=== PATIENT | female | born 1975 | race Caucasian/White ===

== ENCOUNTER → 2018-06-21 13:23 | Outpatient (CLI) | payer BC, SELFPAY ==
--- NOTE | 2018-06-21 13:26 | RAD_ITS ---
STUDY: X-RAY - RIGHT HAND REASON FOR EXAM: Female, 42 years old. Pain at base of second-fourth fingers, difficulty grasping TECHNIQUE: 3 view(s) of the hand. COMPARISON: None. FINDINGS: Normal radiocarpal articulation. Normal distal radioulnar joint. Normal visualized carpal bones. Normal carpal articulations Normal carpometacarpal articulation of the thumb. Normal second through fifth carpometacarpal joints. Benign cystic 5 mm degenerative change with sclerotic border noted in the lateral head of the third metacarpal. Otherwise, normal metacarpi. Normal metacarpophalangeal joint of the thumb. Normal interphalangeal joint of the thumb. Normal proximal and distal phalanges of the thumb. Normal metacarpophalangeal joints of the second through fifth fingers. Normal proximal and distal interphalangeal joints of the second through fifth fingers. Normal phalanges of the second through fifth fingers. The soft tissue structures are unremarkable. There is no demonstrated osseous destructive lesion or acute fracture. RAD/Hand Min 3 Views IMPRESSION: 5 mm benign cystic degenerative change in the head of the third metacarpal, otherwise normal x-ray examination of the right hand. Electronically Signed: René Perez MD at 15:00 EST , Service support ,
== END ==
PROVIDERS: Family Provider Family Medicine; PCP Family Medicine; Referring Provider Physician Assistant; Visit Provider Physician Assistant
DX: M79.641 Pain in right hand (principal)
CPT/HCPCS: 73130

== ENCOUNTER → 2018-08-12 12:03 | Outpatient (CLI) | payer OTHER, SELFPAY ==
[2018-08-06 10:00] VITALS: BMI 36.0
[2018-08-12 13:26] LABS: Hemoglobin A1c 5.3 % (4.2-6.3)
[2018-08-12 13:28] LABS: Anion Gap 9 (5-15); BUN 10 mg/dL (7-18); BUN/Creat Ratio 14.9 RATIO (10-20); Calcium,Total 8.6 mg/dL (8.5-10.1); Chloride 105 mmol/L (98-107); Creatinine, Serum 0.67 mg/dL (0.55-1.02); EST Glomerular Filtration Rate 102 mL/min (>60); Est Glom Filt Rate - Afr Amer 124 mL/min (>60); Glucose 83 mg/dL (74-106); Potassium 3.9 mmol/L (3.5-5.1); Sodium Level 141 mmol/L (136-145); Thyroid Stim Hormone (TSH) 2.93 uIU/mL (0.358-3.74)
== END ==
PROVIDERS: Family Provider Student in an Organized Health Care Education/Training Program; PCP Student in an Organized Health Care Education/Training Program; Referring Provider Internal Medicine; Visit Provider Internal Medicine
DX: Z79.899 Other long term (current) drug therapy (principal); R53.81 Other malaise
CPT/HCPCS: 36415; 80048; 83036; 84443

== ENCOUNTER 2018-08-12 13:00 | Outpatient (RCR) | payer BC, OTHER, SELFPAY ==
--- NOTE | 2018-06-25 14:50 | HP.OTEVAL_ITS ---
Patient's Visit Information MISBAH HERNÁNDEZ is a 42 year old F, referred to Occupational Therapy by REESE Stephen, with a diagnosis of R hand pain 3rd and 4th MCP sprain. Date of Evaluation: 06/25/18 Occupational Therapist: Britney Bruce, ROBINR/Mary, CHT - Subjective Subjective: pt. arrives and states that she was playing pickle ball, fell and landed with hand in extended position causing a sprain in the 3rd and 4th MCP's. This occured on 04/14/18. pt. reports that swelling has improved along with ROM within the past couple months. pt. is concerned because she is still having pain during certain functional tasks and within her work environment. - Pain R hand 1 Pain Intensity Range: 0, 1, 2, 3, 4, 5 - Objective Objective/Observation: swollen on the dorsal aspect of the R hand - ROM ROM Comments: 4th. MP 0/80 R, 0/90 L. PIP 0/95 R, 0/86 L. DIP 0/70 R, 0/86 L. 3rd. MP 0/80 R, 0/94 L. PIP 0/87 R, 0/95 L. DIP 0/75 R, 0/95 L. pt. reports that wrist was not impacted by the fall. 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 by completing strengthening exercises and stretches in order to complete BADL?s and IADL?s. Patient will improve tripod grasp by 5 lbs. by completing strengthening and stretching exercises in order to complete BADL?s and IADL?s. Goal:: Patient will increase ROM in all joints of the 3rd and 4th digits on the R hand by 10 degrees by completing strengthening and stretching exercises in order to complete BADL?s and IADL?s. Goal:: Patient will have decreased swelling and report overall decrease in pain of <2 in order to complete BADL?s and IADL?s. patient will tolerate kinesiotaping methods to decrease swelling in the MCP's of the R hand for increased ability to complete BADL's and IADL's. Goal:: patient will report completion of and demo understanding of HEP for increased I with BADL's and IADL's. - Rehabilitation General Assessment: Pt. arrives with R hand pain 3rd and 4th MCP sprain after falling on 04/14/18. pt. presents today with decrease in strength, ROM, increased pain and swelling, and decreased ability to complete BADL's and IADL's. pt. will benefit from OT services 1-2x/wk for 2-3 wks. Today OT educated pt. about HEP, which included tendon glides and finger stretches. OT educated pt about kinesiotaping methods to decrease swelling in the 3rd and 4th MCP's. OT pr ovided US to break up scar tissue, decrease pain and promote heaing in the R hand. Rehabilitation Potential: Good - Anticipated Interventions Anticipated Interventions: A/AAROM/PROM, Strengthening, Triggerpoint Release, Modalities, Ergonomic Education, ADL Training, Home Program - Visit Plan Frequency: 1-2x /Week Duration: 2-3 wks. TEXT: Thank you for the opportunity to evaluate your patient. For Medicare and Medicare HMO plans, please review the plan of care and approve it. It will need to be FAXED BACK to us at [phone] for Medicare purposes. Please let me know if there are questions or concerns regarding this plan of care. Physician Signature: Date:
--- NOTE | 2018-08-29 08:07 | HP.OT.NRP ---
HP - Discharge Summary - Patient Information MISBAH HERNÁNDEZ was seen in my office for initial evaluation on 06/25/18. The following Plan of Care was established for this patient: Initial Frequency: 1-2x /Week Initial Duration: 2-3 wks. Plan: cont POC - Anticipated Interventions Anticipated Interventions: A/AAROM/PROM, Strengthening, Triggerpoint Release, Modalities, Ergonomic Education, ADL Training, Home Program This patient was last seen in our office 08/12/18. Pertinent comments regarding their Occupational therapy will appear below: pt was seen for 4 visits in OT. Therapy challenged pts ROM, strength and functional use of her right hand. PT called in to let therapist know she is doing well with job duties and is ready for d/c. pt did meet goals in OT. Pt D/C at this time. At this point I will be discontinuing this patient from occupational therapy. I would be happy to see this patient again in the future if found appropriate by the physician. Thank you! Britney Bruce, OTR/L, CHT
== END 2018-08-12 19:00 | disposition home or self-care (01) ==
LOC: OT 13:00
PROVIDERS: Family Provider Student in an Organized Health Care Education/Training Program; PCP Student in an Organized Health Care Education/Training Program; Referring Provider Physician Assistant; Visit Provider Physician Assistant
DX: M79.641 Pain in right hand (principal); S63.652D Sprain of metacarpophalangeal joint of right middle finger, subsequent encounter; S63.654D Sprain of metacarpophalangeal joint of right ring finger, subsequent encounter
CPT/HCPCS: 97035; 97110; 97140; 97166; 97530

== ENCOUNTER → 2018-08-23 07:27 | Outpatient (CLI) | payer OTHER, SELFPAY ==
[2018-08-06 10:00] VITALS: BMI 36.0
[2018-08-12 14:38] VITALS: BMI 36.0
[2018-08-23 07:47] LABS: Hematocrit 38.1 % (37-47); Hemoglobin 12.5 g/dl (12.0-15.0); Mean Corp Hgb Conc 32.8 g/gl (32-36); Mean Corpuscular Hgb 29.6 pg (27.0-32.0); Mean Corpuscular Volume 90.1 fL (81-99); Mean Platelet Vol. 9.5 fl (6.2-12.0); Platelet Count 346 K/mm3 (150-450); RBC Distribution Width CV 13.5 % (11.6-14.6); Red Blood Count 4.23 M/mm3 (4.2-5.4); White Blood Count 6.4 K/mm3 (4.4-11.0)
[2018-08-23 07:54] LABS: Scan Indicated on CBC? Y/N NO
--- NOTE | 2018-08-23 07:59 | BI_ITS ---
MAMMOGRAPHY - BILATERAL SCREENING REASON FOR EXAM: Female, 42 years old. Routine annual screening examination. PERTINENT HISTORY: Non-contributory. TECHNIQUE: Digital bilateral breast nikita (3D mammographic acquisition) in the CC and MLO projections. 2-D mediolateral oblique (MLO) and craniocaudad (CC) views of both breasts were obtained. CAD: Full Field Digital Mammography with Computer Added Detection was performed. COMPARISON: Comparison is made with prior outside examination dated November 13, 2016. FINDINGS: Breast Composition: The breasts are heterogeneously dense, which may obscure small masses. There are no dominant masses or suspicious calcifications. Stable benign-appearing bilateral axillary lymph nodes. No other significant abnormalities are identified. There has been no significant change since the prior study. BI/SCREENING MAMM (CAD), BILAT IMPRESSION: Stable bilateral screening mammogram. Yearly follow-up mammogram recommended. (A) ASSESSMENT CATEGORY: BIRADS Category 2: Benign. A letter regarding these results will be sent to the patient by the facility within 30 days. Approximately 10% of breast cancers are not detected by mammography. A normal mammogram should not delay biopsy of a clinically suspicious abnormality. [id number] Electronically Signed: Americo Dsouza MD at 8:55 EST , Service support ,
[2018-08-23 08:10] LABS: AST(SGOT) 15 U/L (15-37); Alanine Aminotransfer ALT/SGPT 26 U/L (13-56); Albumin, Serum 3.7 g/dL (3.2-5.0); Alkaline Phosphatase 72 U/L (45-117); Bilirubin, Direct 0.11 mg/dL (0.00-0.30); Cholesterol 156 mg/dL (200); Globulin 3.7 g/dL (2.2-4.2); High Density Lipoprotein 48 mg/dL; Protein, Total 7.4 g/dL (6.4-8.2); Triglycerides 128 mg/dL; Very Low Density Lipoprotein 26 mg/dL (5-40)
[2018-08-23 10:11] LABS: Vitamin B12 515 pg/mL (211-911); Vitamin D,25 Hydroxy 21.1 ng/mL (29.95-100.01)
== END ==
PROVIDERS: Family Provider Student in an Organized Health Care Education/Training Program; PCP Student in an Organized Health Care Education/Training Program; Referring Provider Obstetrics & Gynecology; Visit Provider Obstetrics & Gynecology
DX: Z00.00 Encounter for general adult medical examination without abnormal findings (principal); Z12.31 Encounter for screening mammogram for malignant neoplasm of breast
CPT/HCPCS: 36415; 77063; 77067; 80061; 80076; 82306; 82607; 85027

== ENCOUNTER → 2019-02-19 | Outpatient (CLI) | payer OTHER, SELFPAY ==
[2018-08-12 14:38] VITALS: BMI 36.0
--- NOTE | 2019-02-19 14:10 | RAD_ITS ---
STUDY: X-RAY - LEFT FOOT CLINICAL: Female, 43 years old. Foot pain. Heel pain. TECHNIQUE: 3 view(s) of the foot. COMPARISON: None. FINDINGS: Moderate plantar spur. Otherwise normal Talus, calcaneus, and tarsal bones. Normal visualized subtalar, talonavicular, calcaneocuboid, tarsal and tarsometatarsal articulations. Normal metatarsi. Normal metatarsophalangeal joint of the great toe. Normal tibial and fibular sesamoid bones. Normal interphalangeal joint of the great toe. Normal phalanges of the great toe. Normal second through fifth metatarsophalangeal joints. Normal interphalangeal joints and phalanges of the lesser toes. The soft tissue structures are unremarkable. There is no demonstrated fracture. RAD/Foot min 3 Views IMPRESSION: Moderate plantar spur, otherwise normal. Electronically Signed: Munir Metgzer MD at 17:10 EDT , Service support ,
== END | disposition home or self-care (01) ==
LOC: RAD 14:04
PROVIDERS: Family Provider Student in an Organized Health Care Education/Training Program; PCP Student in an Organized Health Care Education/Training Program; Referring Provider Podiatrist Foot & Ankle Surgery; Visit Provider Podiatrist Foot & Ankle Surgery
DX: M79.672 Pain in left foot (principal)
CPT/HCPCS: 73630

== ENCOUNTER 2019-07-02 07:00 | Outpatient (RCR) | payer OTHER, SELFPAY ==
[2018-08-12 14:38] VITALS: BMI 36.0
--- NOTE | 2018-10-19 14:02 | MASS.EVAL ---
Massage Therapy Evaluation: INITIAL EVALUATION: DATE: 10/11/18 PT NAME: MISBAH HERNÁNDEZ : [birth year] V#: [id number] REFERRING PHYS: DR. 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 SHE WAS REFERRED TO [facility] FOR A MASSOTHERAPY EVALUATION BY DR. SMITH WITH THE DIAGNOSIS OF ARTHRITIS OF THE SPINE/TENSION HEADACHES. SHE PRESENTS TODAY WITH THE SYMPTOMS OF MID-BACK PAIN, AND HEADACHES. SHE REPORTS HER PAIN IS A 5/10 AT WORST AND A 2/10 AT REST. SHE WAS DIAGNOSED WITH ARTHRITIS OF THE SPINE 1.5 YEARS AGO. HER TENSION AND HEADACHES HAVE INCREASED IN THE PAST YEAR. MISBAH RATES HER HEALTH IN GOOD CONDITION WITH NO LIMITATIONS IN HER DAILY ACTIVITIES. SHE IS CURRENTLY TAKING FLEXXOR, AND VIT D. OBJECTIVE: THE FIRST TREATMENT CONSISTED OF A MODERATE-DEEP TISSUE UPPER BODY MASSAGE. I FOCUSED ON THE TEMPORALIS, SUBOCCIPITALS, LEVATOR, UPPER TRAPEZIUM, PARASPINALS, RHOMBOIDS, QL'S, AND GLUTEUS MEDIUS AND MINIMUS. MYOFASCIAL RELEASE AND TRIGGER POINT THERAPY WERE PERFORMED. ASSESSMENT: MUSCLE TENSION WAS VERY TIGHT WITH NO NATURAL MYOFASCIAL MOVEMENT. THE LEFT SIDE OF SCAPULAR REGION AND INTO LEFT HIP SEEMED ALOT TIGHTER THAN THE RIGHT SIDE. THE MOST TENDERNESS PLACES WERE THE SUBOCCIPITALS AND SACRAL REGION INTO GLUTEUS. THE PATIENT HAS NOT HAD A MASSAGE FOR MANY YEARS BUT RELAXED WELL WITH A MODERATE RELEASE OVERALL. I FEEL MISBAH IS A GREAT CANDIDATE FOR MASSOTHERAPY AT THIS TIME. PLAN: THE PLAN OF CARE WAS REVIEWED WITH THE PATIENT. THE PATIENT IS TO BE SEEN IN TWO WEEKS THEN ON A REGULAR MONTHLY VISIT FOR A TOTAL OF 10 VISITS FOR ONE HOUR SESSIONS OF MASSOTHERAPY.
--- NOTE | 2018-10-19 14:11 | MASS.EVAL_ITS ---
Massage Therapy Evaluation: INITIAL EVALUATION: DATE: 10/11/18 PT NAME: MISBAH HERNÁNDEZ : [birth year] V#: [id number] REFERRING PHYS: DR. 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 SHE WAS REFERRED TO [facility] FOR A MASSOTHERAPY EVALUATION BY DR. SMITH WITH THE DIAGNOSIS OF ARTHRITIS OF THE SPINE/TENSION HEADACHES. SHE PRESENTS TODAY WITH THE SYMPTOMS OF MID-BACK PAIN, AND HEADACHES. SHE REPORTS HER PAIN IS A 5/10 AT WORST AND A 2/10 AT REST. SHE WAS DIAGNOSED WITH ARTHRITIS OF THE SPINE 1.5 YEARS AGO. HER TENSION AND HEADACHES HAVE INCREASED IN THE PAST YEAR. MISBAH RATES HER HEALTH IN GOOD CONDITION WITH NO LIMITATIONS IN HER DAILY ACTIVITIES. SHE IS CURRENTLY TAKING FLEXXOR, AND VIT D. OBJECTIVE: THE FIRST TREATMENT CONSISTED OF A MODERATE-DEEP TISSUE UPPER BODY MASSAGE. I FOCUSED ON THE TEMPORALIS, SUBOCCIPITALS, LEVATOR, UPPER TRAPEZIUM, PARASPINALS, RHOMBOIDS, QL'S, AND GLUTEUS MEDIUS AND MINIMUS. MYOFASCIAL RELEASE AND TRIGGER POINT THERAPY WERE PERFORMED. ASSESSMENT: MUSCLE TENSION WAS VERY TIGHT WITH NO NATURAL MYOFASCIAL MOVEMENT. THE LEFT SIDE OF SCAPULAR REGION AND INTO LEFT HIP SEEMED ALOT TIGHTER THAN THE RIGHT SIDE. THE MOST TENDERNESS PLACES WERE THE SUBOCCIPITALS AND SACRAL REGION INTO GLUTEUS. THE PATIENT HAS NOT HAD A MASSAGE FOR MANY YEARS BUT RELAXED WELL WITH A MODERATE RELEASE OVERALL. I FEEL MISBAH IS A GREAT CANDIDATE FOR MASSOTHERAPY AT THIS TIME. PLAN: THE PLAN OF CARE WAS REVIEWED WITH THE PATIENT. THE PATIENT IS TO BE SEEN IN TWO WEEKS THEN ON A REGULAR MONTHLY VISIT FOR A TOTAL OF 10 VISITS FOR ONE HOUR SESSIONS OF MASSOTHERAPY.
--- NOTE | 2019-07-03 11:04 | DS.PCM_ITS ---
Massage Therapy Discharge Summary: DATE: 07/03/2019 V#: [id number] PT NAME: MISBAH CUEVA : 1975 REF PHYS: DR. SMITH THE PATIENT WAS SEEN FOR MASSOTHERAPY EVALUATION ON 10/11/2018 WITH A DIAGNOSIS ARTHRITIC SPINE. THE PATIENT WAS TREATED WITH 8 SESSIONS OF MASSAGE CONSISTING OF UPPER BODY DEEP TISSUE MASSAGE, COMBINED WITH TRIGGER POINT THERAPY AND MUSCLE STRIPPING. HER GOALS FOR TREATMENT WERE MET SHE REPORTED TO BE IN LESS PAIN AND LESS MIGRAINES. AT THIS TIME I AM DISCHARGING THE PATIENT FORM OUR CARE AT THE [facility] FOR 2019.
== END 2019-07-02 19:00 | disposition home or self-care (01) ==
LOC: MASS 07:00
PROVIDERS: Family Provider Student in an Organized Health Care Education/Training Program; PCP Student in an Organized Health Care Education/Training Program; Referring Provider Student in an Organized Health Care Education/Training Program; Visit Provider Student in an Organized Health Care Education/Training Program
DX: G44.209 Tension-type headache, unspecified, not intractable (principal)
CPT/HCPCS: 97124

== ENCOUNTER → 2019-07-03 09:21 | Outpatient (CLI) | payer OTHER, SELFPAY ==
[2018-08-12 14:38] VITALS: BMI 36.0
[2019-07-03 10:03] LABS: Absolute Lymphocyte Count 1.97 X10^3/uL (0.83-4.51); Absolute Neutrophil Count 4.9 X10^3/uL (2.0-7.7); Basophil# 0.07 X10^3/uL; Basophil% 0.9 % (0-1); Eosinophil# 0.13 X10^3/uL; Eosinophils% 1.7 % (0-5); Hematocrit 32.9 % (37-47); Hemoglobin 10.3 g/dL (12.0-15.0); Lymphocyte # 1.97 X10^3/ul (4.0); Lymphocyte % 25.9 % (19-41); Mean Corp Hgb Conc 31.3 g/dL (32-36); Mean Corpuscular Hgb 26.2 pg (27.0-32.0); Mean Corpuscular Volume 83.7 fL (81-99); Mean Platelet Vol. 9.6 fl (6.2-12.0); Monocyte# 0.55 X10^3/uL; Monocyte% 7.2 % (0-10); NRBC Flagged by Analyzer 0 % (0-5); Neutrophil # 4.86 X10^3/uL (2.7-7.7); Neutrophil % 63.9 % (47-70); Platelet Count 388 K/mm3 (150-450); RBC Distribution Width CV 15.2 % (11.6-14.6); RBC Distribution Width SD 46.2 fl (35.1-43.9); Red Blood Count 3.93 M/mm3 (4.2-5.4); White Blood Count 7.6 K/mm3 (4.4-11.0)
[2019-07-03 10:47] LABS: Vitamin D,25 Hydroxy 40.2 ng/mL (29.95-100.01)
[2019-07-03 11:32] LABS: AST(SGOT) 11 U/L (15-37); Alanine Aminotransfer ALT/SGPT 19 U/L (13-56); Albumin, Serum 3.8 g/dL (3.2-5.0); Alkaline Phosphatase 83 U/L (45-117); Anion Gap 8 (5-15); BUN 12 mg/dL (7-18); BUN/Creat Ratio 15.3 RATIO (10-20); Calcium,Total 8.4 mg/dL (8.5-10.1); Chloride 106 mmol/L (98-107); Creatinine, Serum 0.78 mg/dL (0.55-1.02); EST Glomerular Filtration Rate 85 mL/min (>60); Est Glom Filt Rate - Afr Amer 103 mL/min (>60); Globulin 3.7 g/dL (2.2-4.2); Glucose 86 mg/dL (74-106); Potassium 3.8 mmol/L (3.5-5.1); Protein, Total 7.5 g/dL (6.4-8.2); Sodium Level 139 mmol/L (136-145); T4 Free Direct 1.02 ng/dL (0.76-1.46); Thyroid Stim Hormone (TSH) 2.31 uIU/mL (0.358-3.74)
== END ==
PROVIDERS: Family Provider Student in an Organized Health Care Education/Training Program; PCP Student in an Organized Health Care Education/Training Program; Referring Provider Registered Nurse; Visit Provider Registered Nurse
DX: E55.9 Vitamin D deficiency, unspecified (principal); R53.83 Other fatigue
CPT/HCPCS: 36415; 80053; 82306; 84439; 84443; 85025

== ENCOUNTER → 2019-07-07 14:07 | Outpatient (CLI) | payer OTHER, SELFPAY ==
[2018-08-12 14:38] VITALS: BMI 36.0
[2019-07-07 15:06] LABS: Absolute Lymphocyte Count 2.12 X10^3/uL (0.83-4.51); Absolute Neutrophil Count 5.1 X10^3/uL (2.0-7.7); Basophil% 1.2 % (0-1); Eosinophil# 0.17 X10^3/uL; Eosinophils% 2.1 % (0-5); Hematocrit 31.4 % (37-47); Hemoglobin 9.9 g/dL (12.0-15.0); Lymphocyte # 2.12 X10^3/ul (4.0); Lymphocyte % 25.9 % (19-41); Mean Corp Hgb Conc 31.5 g/dL (32-36); Mean Corpuscular Hgb 25.8 pg (27.0-32.0); Mean Platelet Vol. 9.8 fl (6.2-12.0); Monocyte# 0.66 X10^3/uL; Monocyte% 8.1 % (0-10); NRBC Flagged by Analyzer 0 % (0-5); Neutrophil % 62.2 % (47-70); Platelet Count 382 K/mm3 (150-450); RBC Distribution Width CV 15.6 % (11.6-14.6); RBC Distribution Width SD 46.3 fl (35.1-43.9); Red Blood Count 3.83 M/mm3 (4.2-5.4); White Blood Count 8.2 K/mm3 (4.4-11.0)
[2019-07-07 15:37] LABS: Vitamin B12 532 pg/mL (211-911)
[2019-07-07 16:11] LABS: AST(SGOT) 13 U/L (15-37); Alanine Aminotransfer ALT/SGPT 20 U/L (13-56); Albumin, Serum 3.6 g/dL (3.2-5.0); Alkaline Phosphatase 83 U/L (45-117); Anion Gap 5 (5-15); BUN 18 mg/dL (7-18); Calcium,Total 8.3 mg/dL (8.5-10.1); Chloride 105 mmol/L (98-107); Creatinine, Serum 1.06 mg/dL (0.55-1.02); EST Glomerular Filtration Rate 60 mL/min (>60); Est Glom Filt Rate - Afr Amer 73 mL/min (>60); Ferritin 3 ng/mL (8-252); Globulin 3.7 g/dL (2.2-4.2); Glucose 79 mg/dL (74-106); Iron 27 ug/dL (50-170); Iron Binding Capacity,Total 487 ug/dL (250-450); PERCENT IRON SATURATION 5.5 % (15.0-55.0); Potassium 3.9 mmol/L (3.5-5.1); Protein, Total 7.3 g/dL (6.4-8.2); Sodium Level 137 mmol/L (136-145)
== END ==
PROVIDERS: Family Provider Student in an Organized Health Care Education/Training Program; PCP Student in an Organized Health Care Education/Training Program; Referring Provider Registered Nurse; Visit Provider Registered Nurse
DX: D64.9 Anemia, unspecified (principal)
CPT/HCPCS: 36415; 80053; 82607; 82728; 82746; 83540; 83550; 85025

== ENCOUNTER → 2019-07-11 10:17 | Outpatient (CLI) | payer OTHER, SELFPAY ==
[2018-08-12 14:38] VITALS: BMI 36.0
== END ==
PROVIDERS: Family Provider Student in an Organized Health Care Education/Training Program; PCP Student in an Organized Health Care Education/Training Program; Referring Provider Registered Nurse; Visit Provider Registered Nurse
DX: D64.9 Anemia, unspecified (principal)
CPT/HCPCS: 82274

== ENCOUNTER 2019-08-12 12:00 | Outpatient (RCR) | payer OTHER, SELFPAY ==
[2018-08-12 14:38] VITALS: BMI 36.0
--- NOTE | 2019-07-03 11:14 | HP.PTEVAL_ITS ---
Patient's Visit Information MISBAH HERNÁNDEZ is a 43 year old F referred to Physical Therapy by Elijah Mcgovern DPM with a diagnosis of L plantarfasciitis. Date of Evaluation: 07/03/19 Physical Therapist: Dalton Sena DPT, OCS, CSCS - Visit Plan Frequency: 3x /Week Duration: 4-6 Weeks Plan: 3x/week for 3-6 weeks for. 1. rollotu gastroc adn PF L, stretch gastroc adn PF. 2. Monitor activitiy modification. 3. strengthen ankle. 4. ionto with dex if ordered(US nonthermal if not) to L heel. Orthoitcs DPM ordered today and billed for. - Subjective Findings: L foot plantarfasciitis since September. Improved but has one spot on heel that hurts sharply, constant noticeable but pretty intense when on it alot. 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 7/10. Dull ache to 7/10. First few steps very painful. Morning pain had been really bad but better now. Doctor did injection adn has inserts and night splints, stretching icing ibuprofen and KT tape. Overall 60% batter. Activites at home are normal but painful on feet alot. Sleeping OK, nightsplint comes of in her sleep. - Pain L heel Pain Intensity (Out of 10): 1 Pain Intensity Range: 1, 7 - Objective Walks safe and I avoiding some heel strike adn push off L. Trasnfers and steps I. AROM L DF 0 adn R 4 degrees with knee straight. Tender to palpation medial L calcaneal plantar surface. Metatarsals adn big toe move well. Ankle strength 5/5 and other AROM WFL. reflexes 2/3 patella adn achilles. Sensation WNL to gross light touch in LE. - Goals Goal 1:: Pain intermittent and 2/10 at worst Goal Time Frame: 4-6 Weeks Goal 2:: Walk at work without increased pain Goal Time Frame: 4-6 Weeks Goal 3:: I approp mgmt of condition with ex/.stretches. Goal Time Frame: 4-6 Weeks Goal 4:: fit for and I in use of orthotics. Goal Time Frame: 4-6 Weeks Goal 5:: Resume walking for fitness without increased pain. Goal Time Frame: 4-6 Weeks - Rehabilitation Potential Physical Therapy Diagnosis: L plantar fasciitis Rehabilitation Potential: Fair - Anticipated Interventions Patient/Client Instruction: Educate patient on: Condition, Plan of Care For the Purpose of:: To decrease pain, To improve muscle performance and motor function, To improve ability of physical actions for home/community/work/leisure Therapeutic Exercise to Include: Strength training, Flexibilty training, Passive ROM For the Purpose of:: To decrease pain, To improve muscle performance and motor function, To improve ability of physical actions for home/community/work/leisure Manual Therapy Techniques to Include: Passive ROM, Soft tissue mobilization For the Purpose of:: To decrease pain, To increase ROM Orthotics: Shoe insert For the Purpose of:: To decrease pain Iontophoresis (with Dexamethozone, with Acetic acid): Yes For the Purpose of:: To decrease pain, To decrease swelling/inflammation Thank you for the opportunity to evaluate your patient. For Medicare and Medicare HMO plans, please review the plan of care and approve it. It will need to be FAXED BACK to us at [phone] for Medicare purposes. For Medicare only, by signing this I certify the plan of care. Please let me know if there are questions or concerns regarding this plan of care. Physician Signature: Date:
--- NOTE | 2019-08-04 08:39 | HP.PTREVAL ---
Elijah Mcgovern DPM, It has been my pleasure to treat MISBAH HERNÁNDEZ over the last 8 visits for L plantarfasciitis. Please see the progress note below for an update on the physical therapy plan of care! Subjective: Feels like it was getting a lot better but flared up last week for no reason. Pain over weekend, 2/10 pain much of time. Wearing orthoitcs in work shoes. Not walking for fitness yet. Objective/Function: 5 degree active DF knee straight and better with knee bent on L today. Improving slowly overall and appropriate to continue 2 more visits before f/u with doctor. Plan Plan: 2 visits of manual and ionto before she f/u with doctor. Willc all after f/u with doctor to extend POC or d/c as needed. Goals Goal 1:: Pain intermittent and 2/10 at worst Goal Time Frame: 4-6 Weeks Goal Progress: Goal Met Goal 2:: Walk at work without increased pain Goal Time Frame: 4-6 Weeks Goal Progress: Progressing Goal 3:: I approp mgmt of condition with ex/.stretches. Goal Time Frame: 4-6 Weeks Goal 4:: fit for and I in use of orthotics. Goal Time Frame: 4-6 Weeks Goal Progress: Goal Met Goal 5:: Resume walking for fitness without increased pain. Goal Time Frame: 4-6 Weeks Goal Progress: Progressing Anticipated Interventions Patient/Client Instruction: Educate patient on: Condition, Plan of Care For the Purpose of:: To decrease pain, To improve muscle performance and motor function, To improve ability of physical actions for home/community/work/leisure Therapeutic Exercise to Include: Strength training, Flexibilty training, Passive ROM For the Purpose of:: To decrease pain, To improve muscle performance and motor function, To improve ability of physical actions for home/community/work/leisure Manual Therapy Techniques to Include: Passive ROM, Soft tissue mobilization For the Purpose of:: To decrease pain, To increase ROM Orthotics: Shoe insert For the Purpose of:: To decrease pain Iontophoresis (with Dexamethozone, with Acetic acid): Yes For the Purpose of:: To decrease pain, To decrease swelling/inflammation Please do not hesitate to contact me at [phone] by phone or if you have questions or concerns regarding this new plan of care! Sincerely, Dalton Sena, DPT, OCS, CSCS
--- NOTE | 2019-08-12 12:18 | HP.PTDCSUM_ITS ---
HP - PT D/C Summary It has been my pleasure to treat MISBAH HERNÁNDEZ under orders from Elijah Mcgovern DPM, for the diagnosis of L plantarfasciitis for a total of 10 visit(s). Discharge Date: 08/12/19 Please see the following information for a summary of their discharge status. - Subjective Subjective: Overall about 70% better. Was 6/10 adn now 3/10 if grocery shopping or working. Can manage it with rest but not always possible. Sleep is OK. Morning is not horrible. May be facing a walking boot from doctor. Orthoitcs help but not being on feet all day. - Pain L heel Pain Intensity (Out of 10): 3 - Overall Improvement % Improvement: 70 - Objective Objective/Function: Has good ROM and flexibility in L foot and ankle...moving well but element winding machine tender to palpation moderately in plantar calcaneus casuing limping at times and effeccting her ability to do fun things with her family and cannot work without incrreased pain regularly. - Goals Goal 1:: Pain intermittent and 2/10 at worst Goal Progress: not anymore Goal 2:: Walk at work without increased pain Goal Progress: Not Progressing Goal 3:: I approp mgmt of condition with ex/.stretches. Goal Progress: Goal Met Goal 4:: fit for and I in use of orthotics. Goal Progress: Goal Met Goal 5:: Resume walking for fitness without increased pain. Goal Progress: Progressing - Plan Plan: Recommend return to doctor for next step(boot?). Pt to call after doctor visit for more visits or d/c depending on meeting with doctor. - D/C Information Discharge Comments: Pt doing well but has plateaud at about 70% better. Still unable to work without increased pain and limping or hike with family. Wishes to pursue next step with doctor If there are questions or concerns regarding this patient's physical therapy, please feel free to call me at [phone]. Thank you for the referral of this patient. Sincerely, Dalton Sena, DPT, OCS, CSCS
== END 2019-08-12 19:00 | disposition home or self-care (01) ==
LOC: PT 12:00
PROVIDERS: Family Provider Student in an Organized Health Care Education/Training Program; PCP Student in an Organized Health Care Education/Training Program; Referring Provider Podiatrist Foot & Ankle Surgery; Visit Provider Podiatrist Foot & Ankle Surgery
DX: M72.2 Plantar fascial fibromatosis (principal)
CPT/HCPCS: 97033; 97035; 97110; 97140; 97162; 97530; 97760; 97763

== ENCOUNTER → 2019-08-14 08:20 | Outpatient (CLI) | payer OTHER, SELFPAY ==
[2018-08-12 14:38] VITALS: BMI 36.0
[2019-08-07 14:51] VITALS: BMI 36.0
[2019-08-14 10:17] LABS: Absolute Lymphocyte Count 1.62 X10^3/uL (0.83-4.51); Absolute Neutrophil Count 5.1 X10^3/uL (2.0-7.7); Basophil% 1.3 % (0-1); Eosinophils% 2.7 % (0-5); Hematocrit 38.4 % (37-47); Hemoglobin 12.1 g/dL (12.0-15.0); Lymphocyte # 1.62 X10^3/ul (4.0); Lymphocyte % 21.7 % (19-41); Mean Corp Hgb Conc 31.5 g/dL (32-36); Mean Corpuscular Hgb 27.1 pg (27.0-32.0); Mean Corpuscular Volume 86.1 fL (81-99); Mean Platelet Vol. 10.1 fl (6.2-12.0); Monocyte# 0.48 X10^3/uL; Monocyte% 6.4 % (0-10); NRBC Flagged by Analyzer 0 % (0-5); Neutrophil # 5.06 X10^3/uL (2.7-7.7); Neutrophil % 67.6 % (47-70); Platelet Count 376 K/mm3 (150-450); RBC Distribution Width CV 17.9 % (11.6-14.6); RBC Distribution Width SD 57.1 fl (35.1-43.9); Red Blood Count 4.46 M/mm3 (4.2-5.4); White Blood Count 7.5 K/mm3 (4.4-11.0)
[2019-08-14 10:37] LABS: Ferritin 15 ng/mL (8-252); Iron 61 ug/dL (50-170); Iron Binding Capacity,Total 428 ug/dL (250-450); PERCENT IRON SATURATION 14.3 % (15.0-55.0)
== END ==
PROVIDERS: Family Provider Student in an Organized Health Care Education/Training Program; PCP Student in an Organized Health Care Education/Training Program; Referring Provider Registered Nurse; Visit Provider Registered Nurse
DX: D50.9 Iron deficiency anemia, unspecified (principal)
CPT/HCPCS: 36415; 82728; 83540; 83550; 85025

== ENCOUNTER → 2019-08-27 07:18 | Outpatient (CLI) | payer OTHER, SELFPAY ==
[2019-08-07 14:51] VITALS: BMI 36.0
--- NOTE | 2019-08-27 07:29 | MRI_ITS ---
STUDY: MRI LEFT ANKLE WITHOUT CONTRAST REASON FOR EXAM: Pain at the medial/plantar aspect of the left heel for 10 months. TECHNIQUE: Standardized fat and water weighted pulse sequences were obtained in all 3 orthogonal planes. COMPARISON: Radiographs 02/19/2019. FINDINGS: There is mild edema in the lateral subcutis adipose space of the distal lower leg. There is a very small volume of fluid in the retromalleolar posterior tibialis tendon sheath (T2 axial images 5-10). The posterior tibialis tendon is morphologically normal. There is a small type II accessory navicular without bone edema. Normal flexor digitorum longus tendon. Normal flexor hallucis longus tendon. There is a longitudinal split of the perimalleolar peroneus brevis tendon (T1 axial images 10-15) and a very small volume of fluid in the submalleolar peroneal tendon sheath (inversion recovery sagittal image 18). The peroneus longus tendon is morphologically normal. There is a very small volume of fluid in the tibialis anterior tendon sheath (T2 axial images 5, 6). The tibialis anterior tendon is morphologically normal. Normal extensor hallucis longus tendon. Normal extensor digitorum longus tendons. Normal Achilles tendon and teno-osseous insertion. There is a trace of fluid in the retrocalcaneal bursa. There is thickening and interstitial edema in the central cord of the plantar fascia (inversion recovery sagittal images 10, 11). There is a plantar calcaneal enthesophyte with bone edema (inversion recovery sagittal images 12, 13). Normal intrinsic muscles of the rearfoot. Normal distal tibiofibular syndesmotic ligamentous complex. Normal lateral ligamentous complex. Normal subtalar ligaments and sinus tarsi. Normal deltoid ligamentous complexes. Normal plantar calcaneonavicular (spring) ligament. Normal tibiotalar articulation. Normal talar dome. Normal subtalar articulations. Normal talonavicular articulation. Normal calcaneocuboid articulation. Normal navicular-cuneiform articulations. MRI/Lower Ext Joint Only (Routine) IMPRESSION: Plantar fasciitis and plantar calcaneal enthesophyte with bone edema. Longitudinal split of the peroneus brevis tendon and very mild peroneal tenosynovitis. Very mild posterior tibialis tenosynovitis. Very mild tibialis anterior tenosynovitis. Electronically Signed: Fransico Yen MD at 10:39 EST Tel , Service support ,
== END ==
PROVIDERS: PCP Student in an Organized Health Care Education/Training Program; Referring Provider Podiatrist Foot & Ankle Surgery; Visit Provider Podiatrist Foot & Ankle Surgery
DX: M72.2 Plantar fascial fibromatosis (principal)
CPT/HCPCS: 73721

== ENCOUNTER → 2019-09-10 13:33 | Outpatient (CLI) | payer OTHER, SELFPAY ==
[2019-08-07 14:51] VITALS: BMI 36.0
--- NOTE | 2019-09-10 13:35 | BI_ITS ---
MAMMOGRAPHY - BILATERAL SCREENING REASON FOR EXAM: Female, 43 years old. Routine annual screening examination. PERTINENT HISTORY: No family history of breast cancer TECHNIQUE: Digital bilateral breast violette (3D mammographic acquisition) in the CC and MLO projections. 2-D mediolateral oblique (MLO) and craniocaudad (CC) views of both breasts were obtained. CAD: Full Field Digital Mammography with Computer Added Detection was performed. COMPARISON: None. FINDINGS: Breast Composition: Extremely dense central vasculature There are no dominant masses or suspicious calcifications. No other significant abnormalities are identified. BI/SCREEN MAMM (CAD) W/VIOLETTE BILAT IMPRESSION: Stable bilateral screening mammogram. Yearly follow-up mammogram recommended. (A) ASSESSMENT CATEGORY: BIRADS Category 1: Negative. A letter regarding these results will be sent to the patient by the facility within 30 days. Approximately 10% of breast cancers are not detected by mammography. A normal mammogram should not delay biopsy of a clinically suspicious abnormality. [id number] Electronically Signed: Paul Augustin, at 16:52 EST Tel , Service support ,
== END ==
PROVIDERS: PCP Student in an Organized Health Care Education/Training Program; Referring Provider Obstetrics & Gynecology; Visit Provider Obstetrics & Gynecology
DX: Z12.31 Encounter for screening mammogram for malignant neoplasm of breast (principal)
CPT/HCPCS: 77063; 77067

== ENCOUNTER → 2020-03-17 06:33 | Outpatient (CLI) | payer OTHER, SELFPAY ==
[2019-12-18 12:30] VITALS: BMI 36.0
[2020-03-17 07:25] LABS: Absolute Lymphocyte Count 1.64 X10^3/uL (0.83-4.51); Absolute Neutrophil Count 4.1 X10^3/uL (2.0-7.7); Basophil# 0.11 X10^3/uL; Basophil% 1.7 % (0-1); Eosinophil# 0.17 X10^3/uL; Eosinophils% 2.6 % (0-5); Hematocrit 37.7 % (37-47); Hemoglobin 12.5 g/dL (12.0-15.0); Lymphocyte # 1.64 X10^3/ul (4.0); Lymphocyte % 25.1 % (19-41); Mean Corp Hgb Conc 33.2 g/dL (32-36); Mean Corpuscular Hgb 31.3 pg (27.0-32.0); Mean Corpuscular Volume 94.5 fL (81-99); Mean Platelet Vol. 9.7 fl (6.2-12.0); Monocyte# 0.48 X10^3/uL; Monocyte% 7.4 % (0-10); NRBC Flagged by Analyzer 0 % (0-5); Neutrophil # 4.11 X10^3/uL (2.7-7.7); Neutrophil % 62.9 % (47-70); Platelet Count 367 K/mm3 (150-450); RBC Distribution Width CV 12.5 % (11.6-14.6); RBC Distribution Width SD 43.7 fl (35.1-43.9); RET-HE 34.7 pg (30-35); Red Blood Count 3.99 M/mm3 (4.2-5.4); Reticulocyte Count 1.09 % (0.5-1.5); White Blood Count 6.5 K/mm3 (4.4-11.0)
[2020-03-17 08:38] LABS: Progesterone Level 0.58 ng/mL (See Comment)
[2020-03-17 08:52] LABS: AST(SGOT) 13 U/L (15-37); Alanine Aminotransfer ALT/SGPT 21 U/L (13-56); Albumin, Serum 3.7 g/dL (3.2-5.0); Alkaline Phosphatase 74 U/L (45-117); Anion Gap 4 (5-15); BUN 12 mg/dL (7-18); BUN/Creat Ratio 13.8 RATIO (10-20); Calcium,Total 8.4 mg/dL (8.5-10.1); Chloride 104 mmol/L (98-107); Cholesterol 152 mg/dL (200); Creatinine, Serum 0.87 mg/dL (0.55-1.02); EST Glomerular Filtration Rate 75 mL/min (>60); Est Glom Filt Rate - Afr Amer 91 mL/min (>60); Ferritin 16 ng/mL (8-252); Follicle Stimulating Hormone 3.2 mIU/mL; Free T3 2.9 pg/mL (2.18-3.98); Globulin 3.6 g/dL (2.2-4.2); Glucose 93 mg/dL (74-106); High Density Lipoprotein 42 mg/dL; Iron 53 ug/dL (50-170); Iron Binding Capacity,Total 374 ug/dL (250-450); Potassium 3.6 mmol/L (3.5-5.1); Protein, Total 7.3 g/dL (6.4-8.2); Sodium Level 137 mmol/L (136-145); Thyroid Stim Hormone (TSH) 2.24 uIU/mL (0.358-3.74); Triglycerides 131 mg/dL; Very Low Density Lipoprotein 26 mg/dL (5-40)
[2020-03-20 14:07] LABS: Testosterone, Free 0.46 ng/dL (0.10-0.85); Testosterone, Total 41 ng/dL (8-48)
[2020-03-20 14:35] LABS: Testosterone, % Free 1.11 % (0.50-2.80)
== END ==
PROVIDERS: PCP Student in an Organized Health Care Education/Training Program; Referring Provider Student in an Organized Health Care Education/Training Program; Visit Provider Student in an Organized Health Care Education/Training Program
DX: Z00.00 Encounter for general adult medical examination without abnormal findings (principal); N95.1 Menopausal and female climacteric states; D50.9 Iron deficiency anemia, unspecified
CPT/HCPCS: 36415; 80053; 80061; 82728; 83001; 83540; 83550; 84144; 84402; 84403; 84439; 84443; 84481; 85025; 85045

== ENCOUNTER 2020-06-24 10:45 | Outpatient (RCR) | payer OTHER, SELFPAY ==
[2018-08-12 14:38] VITALS: BMI 36.0
[2019-08-07 14:51] VITALS: BMI 36.0
--- NOTE | 2019-08-28 10:17 | MASS.EVAL ---
Massage Therapy Evaluation: INITIAL EVALUATION: DATE: 08/14/2019 PT NAME: MISBAH HERNÁNDEZ : 1975 V#: [id number] REF PHYS: DR. 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 SHE WAS REFERRED TO [facility] FOR A MASSOTHERAPY EVALUATION BY DR. SMITH WITH THE DIAGNOSIS OF LOW BACK, SCIATICA PAIN. SHE PRESENTS TODAY WITH A HEADACHE AND PAIN IN LOW BACK. 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 SHE RATES HER OVERALL HEALTH TO BE IN GOOD CONDITION WITH SOME LIMITATIONS IN HER DAILY ACTIVITIES. MISBAH IS CURRENTLY TAKING PROZAC AT THIS TIME. OBJECTIVE: THE FIRST TREATMENT CONSISTED OF A DEEP TISSUE UPPER BODY MASSAGE. I FOCUSED ON THE TEMPORALIS, SUBOCCIPITALS, PARASPINALS, UPPER TRAPEZIUM, LEVATOR, SCALENES,RHOMBOIDS, QL'S, AND GLUTES. TRIGGER POINT THERAPY AND MYOFASCIAL RELEASE TO THE NECK AND SACRUM WERE PERFORMED. ASSESSMENT: UPON PALPATION, THE MUSCLE TISSUE WAS VERY HARD AND TENDER IN THE CERVICAL AND SCALP WITH NO NATURAL MOVEMENT. THE PATIENT HAD A HEADACHE FOR A FEW DAYS AND WAS HAVING A HARD TIME RELAXING. THE AREAS IN THE LOWER BACK WAS ALL SENSITIVE WELL. OVERALL, I FELT THERE WAS A GOOD RELEASE OF TENSION IN THE FIRST MASSAGE. I FEEL THAT THE PATIENT IS A GREAT CANDIDATE FOR MASSOTHERAPY AT THIS TIME. PLAN; THE PLAN OF CARE WAS REVIEWED WITH THE PATIENT. THE PATIENT IS TO BE SEEN ON A MONTHLY BASIS FOR ONE HOUR SESSIONS OF MASSOTHERAPY ALONG WITH A HOME STRETCHING PLAN.
--- NOTE | 2020-06-30 09:48 | DS.PCM_ITS ---
Massage Therapy Discharge Summary: DATE: 06/30/20 V# [id number] PT NAME: MISBAH HERNÁNDEZ : 75 REF PHYS: LUIS THE PATIENT WAS SEEN FOR MASSOTHERAPY EVALUATION ON 08/14/19 WITH A DIAGNOSIS OF LBP AND SCIATICA. THE PATIENT WAS TREATED WITH 6 SESSIONS OF MASSAGE CONSISTING OF ONE HOUR DEEP TISSUE UPPER BODY MASSAGE. HER GOALS HAVE BEEN MET SHE HAS IMPROVEMENTS THRU OUT HER THERAPY. AT THIS TIME I AM DISCHARGING THE PATIENT FORM OUR CARE AT [facility]. BALDO FLORES LMT
== END 2020-06-24 19:00 | disposition home or self-care (01) ==
LOC: MASS 10:45
PROVIDERS: Family Provider Student in an Organized Health Care Education/Training Program; PCP Student in an Organized Health Care Education/Training Program; Referring Provider Student in an Organized Health Care Education/Training Program; Visit Provider Student in an Organized Health Care Education/Training Program
DX: M54.5 Low back pain (principal); G89.29 Other chronic pain
CPT/HCPCS: 97124

== ENCOUNTER 2020-08-10 08:00 | Outpatient (RCR) | payer OTHER, SELFPAY ==
[2020-05-19 08:58] VITALS: BMI 36.8
--- NOTE | 2020-08-02 14:12 | HP.PTEVAL ---
Patient's Visit Information MISBAH HERNÁNDEZ is a 44 year old F referred to Physical Therapy by Dr. Elijah Mcgovern DPM with a diagnosis of Peroneal tendon rupture, left intial encounter. Date of Evaluation: 08/02/20 Physical Therapist: Jigna Salter DPT - Visit Plan Frequency: 2x /Week Duration: 4 Weeks Plan: 08/02: hear back from surgeron on plan. next visit: start US, manual therapy to lateral aspect of the LE, gastoc/soleus stretching, glut med strengthening, SLS balance with posture. if only 30 minute tx session focus only on modalities and manual therapy - Subjective Pt presents with pain increasing from torn tendon (MRI last that showed torn tendon but at time had no pain) - had plantar fascitis went on vacation and did a hike. Pt didnt have pain till march and has increased since then. was on a hike and foot/ankle swelled up after- was wearing good shoes ([place]). Pt does have orthotics that were fit last year for plantar fascitits worn in work shoes. Pt wear Hoka's at work. Pain:1/10 ache, worse: 6/10 when working, starts to burn- goes down to pinky to and lateral aspect of leg. better: lace up ankle brace, wear when works to help and make it tolerable. Pain is felt through whole foot without the brace and becomes painful to walk on. Pt's sleep:no difficulties. 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 pmhx:plantar fascitis. is seeing a surgeon today, in [place] ([place])after this - Objective Posture: L navicular drop pronation in standing. gait: L>R pronation- good weight shifting, heel/toe pattern and chiara. SLS: navicular drop on L, with mild +[place]. palpation: tender on lateral aspect of leg to the knee and around lateral foot to the 5th ray. observation: navicular mild swelling. ROM: ankle: DF 5 degrees, PF 60 degrees, inversion 30 degress, eversion 30 degrees. Strength: core: fair hip: flex 4+/5 ext 4+/5, IR 4-/5 ER 4-/5. knee: flex 5/5 ext 5/5 ankle: DF 4+/5 PF 4+/5, inversion 4+/5eversion 4+/5. Pt education on proper footwear and was fitted for orthotics with heel cup. Speical Test: tinel's sign: negative. Flexibility: Gastroc: severe, Solues: moderate - Goals Goal 1:: Patient will be I with HEP and progression Goal Time Frame: 4-6 Weeks Goal 2:: Patient will demonstrate increased strength 5/5 in LE chain Goal Time Frame: 4-6 Weeks Goal 3:: Patient will be able to perform amublation for >300 feet with normalized gait pattern Goal Time Frame: 4-6 Weeks Goal 4:: Patient will maintain proper posture t/o tx session to demo increased core s/s. Goal Time Frame: 4-6 Weeks Goal 5:: Patient will SLS for 30 sec without hip drop. Goal Time Frame: 4-6 Weeks - Rehabilitation Potential Physical Therapy Diagnosis: Pt presents with decrease strength, flexibilty and range of motion throughout the L LE chain impacting ADL/work related activites. Rehabilitation Potential: Good - Anticipated Interventions Patient/Client Instruction: Educate patient on: Benefits of Fitness Program Therapeutic Exercise to Include: Strength training, Endurance training, Balance training, Agility training, Body mechanics, Postural training, Flexibilty training, Gait and locomotor training, Neuromotor development, Dynamic Lumbar Stabilization, Scapular Strength/Stabilization For the Purpose of:: To improve muscle performance and motor function Functional Training to Include: ADL Training, Functional work training For the Purpose of:: To improve ability to perform ADL's Functional electric stimulation: Yes Cryotherapy (ice pack, ice massage): Yes Thermo therapy (hot pack): Yes Ultrasound (thermal/non thermal): Yes For the Purpose of:: To decrease swelling/inflammation Thank you for the opportunity to evaluate your patient. For Medicare and Medicare HMO plans, please review the plan of care and approve it. It will need to be FAXED BACK to us at [phone] for Medicare purposes. For Medicare only, by signing this I certify the plan of care. Please let me know if there are questions or concerns regarding this plan of care. Physician Signature: Date:
--- NOTE | 2020-09-20 14:19 | HP.PTDCSUM ---
It has been my pleasure to treat MISBAH HERNÁNDEZ referred by Dr. Elijah Mcgovern DPM, with the diagnosis of Peroneal tendon rupture, left intial encounter for a total of 3 visit(s). Discharge Date: Please see the following information for a summary of their discharge status. Subjective: Pt states no pain, jsut a constant ache. Objective/Function: Pt morelia interventions without incidence. Nickerson no worse afterwards, constant ache remianed. Stressed cont calf stretching - bent knee as well as straight. Focus today on US and manual as detailed in POC, also able to add a quick exercise for hip abd strength and slant board stretching at EOS. Goal 1:: Patient will be I with HEP and progression Goal 2:: Patient will demonstrate increased strength 5/5 in LE chain Goal 3:: Patient will be able to perform amublation for >300 feet with normalized gait pattern Goal 4:: Patient will maintain proper posture t/o tx session to demo increased core s/s. Goal 5:: Patient will SLS for 30 sec without hip drop. Plan: 08/02: hear back from lyn on plan. 08/10: second oppinon from Dr. Perera. US, manual therapy to lateral aspect of the LE, gastoc/soleus stretching, glut med strengthening, SLS balance with posture. If there are questions or concerns regarding this patient's physical therapy, please feel free to call me at [phone]. Thank you for the referral of this patient. Sincerely, Jigna Salter DPT
== END 2020-08-10 19:00 | disposition home or self-care (01) ==
LOC: PT 08:00
PROVIDERS: PCP Student in an Organized Health Care Education/Training Program; Referring Provider Podiatrist Foot & Ankle Surgery; Visit Provider Podiatrist Foot & Ankle Surgery
DX: S86.312D Strain of muscle(s) and tendon(s) of peroneal muscle group at lower leg level, left leg, subsequent encounter (principal)
CPT/HCPCS: 97035; 97110; 97140; 97162; 97760